=== PATIENT | female | born 1950 | race Caucasian/White ===

== ENCOUNTER 2016-10-31 16:56 | Emergency (ER) | payer OTHER ==
[~2016-10-31] VITALS: Ht 168.9 cm; Wt 74.8 kg
[~2016-10-31 16:56] MED LIST: AFRIN PUMPMIST15 ML NASB; ALBUTEROL0.09 MG/A2 INH; BIAXIN FILMTAB500 MG PO; MOBIC7.5 MG PO; PREDNISONE 20MG20 MG PO; TESSALON PERLE100 MG PO
--- NOTE | 2016-10-31 17:38 | ED INFLUENZA/URI COMPLAINT ---
History of Present Illness General Chief Complaint: General Adult Stated Complaint: PT IS HAVING A PROBLEM BREATHING Source: patient, old records Exam Limitations: no limitations Vital Signs & Intake/Output Vital Signs & Intake/Output Vital Signs Date Time Temp Pulse Resp B/P Pulse O2 O2 Flow FiO2 Ox Delivery Rate 10/31 1824 103.0 10/31 182 103.0 120 20 107/58 98 Room Air 10/31 1807 98 Room Air 10/31 1801 95 10/31 1706 99.9 115 20 130/76 98 Room Air ED Intake and Output 11/01 0000 10/31 1200 Intake Total 0 Output Total Balance 0 Intake, IV 0 Patient 165 lb Weight Allergies Coded Allergies: epinephrine (Severe, THROAT CLOSES 10/31/16) morphine (Severe, SHOCK 10/31/16) Penicillins (Intermediate, HEART RACES 10/31/16) acetaminophen (From PERCOCET) (Intermediate, N/V 10/31/16) ciprofloxacin (From CIPRO) (Intermediate, HEART RACES 10/31/16) oxycodone (From PERCOCET) (Intermediate, N/V 10/31/16) tetracycline (Intermediate, HEART RACES 10/31/16) minocycline (Mild, RASH 10/31/16) venom-honey bee (10/31/16) Triage Note: TRIAGE: PT TO ER C/C "MY EYESOCKETS ARE SORE. MY COUGH, EVERYTHING IN MY RIB CAGE HURTS. FEVERS." ONSET FRIDAY. STATES "I AM A LITTLE BIT BETTER BUT NOT THAT MUCH". Triage Nurses Notes Reviewed? yes Onset: Abrupt Duration: day(s): (4), constant Timing: recent history Severity: mild, moderate Severity Numbers: 5 Prior Episodes/Possible Cause: occassional episodes No Modifying Factors: none Associated Symptoms: muscle aches, nasal congestion, nasal drainage HPI: 66-year-old female presents to emergency room complaining of a productive cough of yellow to green sputum, intermittent subjective fever chills generalized bodyaches rhinorrhea congestion for the past 4 days. The patient states she's been using Afrin and using an old pro-air inhaler with improvement. She is not taken anything for her fevers. She denies any nausea vomiting or diarrhea no shortness of breath no chest pain no abdominal pain. Patient states she was seen here last year for similar symptoms at which time she was prescribed clarithromycin and prednisone which helped resolve her symptoms. She does not smoke. She reports sick contacts at work with similar symptoms (GARDENIA CUETO) Reconcile Medications Albuterol Sulfate (Proair Hfa) 90 MCG HFA.AER.AD 2 PUF INH Q4-6 PRN PRN WHEEZING Benzonatate (Tessalon Perle) 100 MG CAPSULE 1 CAP PO TID PRN COUGH Benzonatate (Tessalon Perle) 100 MG CAPSULE 1 CAP PO TID PRN COUGH Clarithromycin (Biaxin) 250 MG TABLET 1 TAB PO BID BRONCHITIS Ibuprofen 800 MG TABLET 1 TAB PO TID PRN FEVER Methylprednisolone. (Medrol) 4 MG TAB.DS.PK 1 DP PO AD BRONCHITIS 6 on day 1 then reduce by one tablet daily until gone OXYMETAZOLINE HCL (Afrin) 15 ML SPRAY 2 SPRAY NASB BID sinusitis (ART ESCAMILLA,MARGO) Past History Travel History Traveled to [place] past 21 day No Medical History Any Pertinent Medical History? 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 No (GARDENIA CUETO) Review of Systems Review of Systems Constitutional: Reports: see HPI. All Other Systems: Reviewed and Negative Comments Review of systems: See HPI, All other systems negative. Constitutional, chills fever, no malaise no weight loss HEENT: no sore throat congestion, no ear pain Cardiovascular: No chest pain , no palpitation Skin, no jaundice no rashes, no change in skin Respiratory: No dyspnea coughsputum no hemoptysis GI: No nausea no vomiting, no diarrhea, : No dysuria No hematuria Muscle skeletal: No joint pain, no back pain, no neck pain, Neurologic: No numbness no headache Psych: No stress Heme/endocrine: No bruising no bleeding Immunology: No lymphadenopathy (GARDENIA CUETO) Physical Exam Physical Exam General Appearance: well developed/nourished, alert, awake Ears, Nose, Throat: normal ENT inspection, moist mucous membrane, hearing grossly normal, Tympanic normal, pharynx normal, nasal congestion Comments: Well-developed well-nourished patient in no apparent distress. HHead/Face: Atraumatic, no maxillary/frontal sinus tenderness, no facial swelling Eyes: PERRL, EOMI, no conjunctival injectio Ear:External auditory canal and Tympanic membranes clear, no erythema, no FB. Nose: atraumatic.Normal inspection: No bleeding Throat: Moist mucous membranes.Pharynx normal. No pharyngeal erythema/exudate seen. No stridor/drooling or assymetry. No swelling or edema. Neck: Supple, no lymphadenopathy, FROM Back: FROM, Nontender Cardiovascular: Regular rate and rhythms no murmurs rubs or gallops, Respiratory: Chest nontender.There were no bony deformities, no asymmetry. No respiratory distress. Patient speaking in full complete sentences. Breath sounds clear to auscultation bilaterally: NO W/R/R Extremities: full range of motion Neuro: Alert and oriented x3 Skin: Warm & dry;No appreciable rash on exposed skin Psych: Mood affect normal, normal memory normal judgment. Core Measures Severe Sepsis Present: No Septic Shock Present: No (GARDENIA CUETO) Progress Differential Diagnosis: influenza, otitis, pneumonia, pharyngitis, sinusitis, BRONCHITIS Plan of Care: Current Medications Sig/Zaid Start time Last Medication Dose Stop Time Status Admin Ibuprofen 800 MG ONCE ONE 10/31 1829 UNVr (Motrin) 10/31 1830 Patient clinically appears well lungs are clear auscultation symptoms being present for greater than 4 days. She speaking full complete sentences discussed with her that her symptoms are not consistent with influenza and she is outside the window for Tamiflu anyway I do not believe she needs a chest x-ray or lab work for which she is in agreement with. After breathing treatment patient is feeling improved remains nontoxic appearing prescription for clarithromycin prednisone per hour inhaler Marcia Gregorio provided advised close follow-up with her primary care physician on Friday return anytime sooner with any concerns she feels comfortable with this plan clear discharge (GARDENIA CUETO) Initial ED EKG: none (GARDENIA CUETO) Departure Departure Time of Disposition: 1823 Disposition: HOME OR SELF CARE Condition: Stable Clinical Impression Primary Impression: Bronchitis Referrals: JEN DOTY MD (PCP/Family) Additional Instructions: FOLLOW UP WITH YOUR PMD NEXT WEEK. CLARITHROMYCIN, TESSALON PERLES, MEDROL DOSE STARLA, PROAIR INHALER DIRECTED. THESE PRESCRIPTIONS WERE SENT TO [facility]. Departure Forms: Customer Survey General Discharge Information Prescriptions: Current Visit Scripts Benzonatate (Tessalon Perle) 1 CAP PO TID PRN COUGH #21 CAP Albuterol Sulfate (Proair Hfa) 2 PUF INH Q4-6 PRN PRN WHEEZING #1 INHAL Clarithromycin (Biaxin) 1 TAB PO BID #14 TAB Methylprednisolone. (Medrol) 1 DP PO AD #1 DP 6 on day 1 then reduce by one tablet daily until gone Ibuprofen 1 TAB PO TID PRN FEVER #30 TAB (GARDENIA CUETO) PA/HOTEL RECEPTIONIST Co-Sign Statement Statement: ED Attending supervision documentation- [X] I saw and evaluated the patient. I have also reviewed all the pertinent lab results and diagnostic results. I agree with the findings and the plan of care as documented in the PA's/HOTEL RECEPTIONIST's documentation. [X] I have reviewed the ED Record and agree with the PA's/HOTEL RECEPTIONIST's documentation. [] Additions or exceptions (if any) to the PAs/HOTEL RECEPTIONIST's note and plan are summarized below: [] (ART ESCAMILLA,MARGO)
[2016-10-31] MEDS ORDERED: PROAIR HFA8.5 GM INH (17:55)
[2016-10-31] MEDS ORDERED: BIAXIN250 MG PO (17:55)
[2016-10-31] MEDS ORDERED: MEDROL4 M2 PO (17:55)
[2016-10-31] MEDS ORDERED: TESSALON PERLE100 M1 PO (17:55)
[2016-10-31 18:21] VITALS: BP 107/58
[2016-10-31] MEDS ORDERED: IBUPROFEN800 M1 PO (18:24)
== END 2016-10-31 18:35 ==
LOC: ERH 16:56
DX: J40 Bronchitis, not specified as acute or chronic (principal); Z87.891 Personal history of nicotine dependence
CPT/HCPCS: 1263